=== PATIENT | female | born 1965 | race Caucasian/White ===

== ENCOUNTER → 2018-01-04 07:41 | Outpatient (CLI) | payer OTHER, SELFPAY ==
--- NOTE | 2018-01-04 07:46 | US_ITS ---
HISTORY: ITS.REASON: RUQ PAIN ORDERING PHYSICIAN: Mary Mcneil PATIENT AGE: 52 years COMPARISON: None FINDINGS: PANCREAS: Unremarkable. No obvious mass or abnormal fluid collection. No ductal dilatation LIVER: No focal liver lesions demonstrated. Homogeneous echogenicity. No intrahepatic biliary ductal dilatation evident RIGHT KIDNEY: Unremarkable. Normal size and echogenicity. No hydronephrosis GALLBLADDER: There is a gallstone present measuring 1.3 cm. No gallbladder wall thickening, pericholecystic fluid, or biliary dilatation is evident.. IMPRESSION: Cholelithiasis
== END ==
PROVIDERS: PCP Family Medicine; Visit Provider Family Medicine
DX: R10.11 Right upper quadrant pain (principal)
CPT/HCPCS: 76705

== ENCOUNTER → 2020-01-17 08:07 | Outpatient (CLI) | payer OTHER, SELFPAY ==
[2020-01-17 08:36] LABS: Chloride 102 mmol/L (98-107); Potassium 3.9 mmoL/L (3.5-5.1); Sodium 139 mmol/L (136-145)
[2020-01-17 08:39] LABS: Blood Urea Nitrogen 14 mg/dl (7-17); Estimated Glomerular Filt Rate 65 ml/min (>60); GFR (African American) 79 ML/MIN (>60)
[2020-01-17 08:40] LABS: Anion Gap 10.9 mEq/L (5-15); Calcium 9.4 mg/dl (8.4-10.2); Carbon Dioxide 30 mmol/L (22.0-30.0); Glucose 107 mg/dl (74-100)
--- NOTE | 2020-01-17 08:56 | CT_ITS ---
PROCEDURE: CT ABDOMEN PELVIS WO/W CON CLINICAL INDICATION: ABD PAIN, Right flank pain, increasing pain COMPARISON: No exams were available for comparison TECHNIQUE: IV Contrast: 75ML OPTIRAY 350 Oral Contrast none Axial images obtained without and with contrast with sagittal and coronal reformats. All CT scans at the facility use one or more dose reduction, viz: automated exposure control, ma/kV adjustment per patient size (including targeted exams where dose is matched to indication, i.e. head), or iterative reconstruction technique. FINDINGS: LOWER THORAX: No acute finding ABDOMEN & PELVIS: Post cholecystectomy change. The liver, spleen, adrenal glands, kidneys, and pancreas have an unremarkable appearance. No renal or ureteral calculi. No hydronephrosis. There is a small umbilical hernia which contains fat. There is a mild amount of retained colonic feces and few scattered small mesenteric, periportal, and retroperitoneal lymph nodes. No evidence of appendicitis or diverticulitis. No intestinal obstruction or free air. There are post hysterectomy changes. Degenerative changes are present in the lower thoracic spine. IMPRESSION: 1. No acute abdominal or pelvic findings. 2. No renal or ureteral calculi. 3. Mild amount of retained colonic feces with other incidental findings as described above. Dictated by: Yuriy Wise MD 01/18/2020 06:13 Electronically signed by Yuriy Wise MD in [place] 01/18/2020 06:13
--- NOTE | 2020-01-17 09:26 | [facility].ITSHM ---
Current Home Medications as stated by this patient Francine Dolan or direct customer service representative. []vitamin D 1000iu levothyroxin 50 mcg lisinopril 10mg amlodipine 5 mg omeprazole 40 mg
== END ==
PROVIDERS: PCP Family Medicine; Visit Provider Family Medicine
DX: R10.9 Unspecified abdominal pain (principal); I10 Essential (primary) hypertension
CPT/HCPCS: 36415; 74178; 80048; Q9967